=== PATIENT | male | born 1980 | race Caucasian/White ===

== ENCOUNTER 2021-03-02 12:56 | Emergency (ER) | payer OTHER ==
[~2021-03-02] VITALS: Ht 177.8 cm; Wt 63.5 kg
[~2021-03-02 12:56] MED LIST: AMOCLA875 PO
== END 2021-03-02 14:36 | disposition home or self-care (01) ==
LOC: ER 12:56
DX: M54.41 Lumbago with sciatica, right side (principal); Z88.0 Allergy status to penicillin
CPT/HCPCS: 93971; 99283-25